=== PATIENT | male | born 1985 | race Caucasian/White ===

== ENCOUNTER 2017-02-19 06:10 | Emergency (ER) | payer MEDICAID ==
[~2017-02-19] VITALS: Ht 167.6 cm; Wt 75.0 kg
[~2017-02-19 06:10] MED LIST: MECL12.574 PO
[2017-02-19 06:14] VITALS: Ht 167.6 cm; Wt 75.0 kg
--- NOTE | 2017-02-19 06:34 | ERD ---
ER Documentation Chief Complaint Date/Time DATE: 02/19/17 TIME: 06:32 Chief Complaint left big toe injury HPI 32-year-old male comes in with left proximal big toe pain, he occurred in flexion injury while going down the stairs this morning 30 minutes ago. He describes localized pain that is achy, worse with weightbearing and worse with movement, better at rest. ROS All systems reviewed and are negative except as per history of present illness. Medications Home Meds Active Scripts Hydrocodone/Acetaminophen (Dundas 5-325 Tablet) 1 Each Tablet, 1 TAB PO Q6H Y for PAIN, #7 TAB Prov:KASANDRA LORENZANA PA-C 02/19/17 Ibuprofen* (Motrin*) 600 Mg Tab, 600 MG PO Q6, #30 TAB Prov:KASANDRA LORENZANA PA-C 02/19/17 Meclizine Hcl* (Antivert*) 12.5 Mg Tab, 25 MG PO Q6H Y for DIZZINESS, #20 TAB Prov:DENTON CASTRO NP 05/08/16 Reported Medications [none] Unknown Strength No Conflict Check 05/08/16 Allergies Allergies: Coded Allergies: No Known Allergy (Unverified , 02/19/17) PMhx/Soc Medical and Surgical Hx: pt denies Medical Hx, pt denies Surgical Hx History of Surgery: No Anesthesia Reaction: No Hx Neurological Disorder: No Hx Respiratory Disorders: No Hx Cardiac Disorders: No Hx Psychiatric Problems: No Hx Miscellaneous Medical Probl: No Hx Alcohol Use: Yes (socially) Hx Substance Use: No Hx Tobacco Use: No Smoking Status: Never smoker Physical Exam Vitals Vital Signs Date Time Temp Pulse Resp B/P Pulse Ox O2 Delivery O2 Flow Rate FiO2 02/19/17 06:14 97.8 78 20 119/75 98 Physical Exam General: Well-developed, well-nourished. The patient appears in no acute distress. HEENT: Head is normocephalic, atraumatic. No scleral icterus. Neck: Supple. Nontender. Lungs: Clear to auscultation. Normal air movement. Heart: Regular rate and rhythm. S1 and S2 are normal. No murmurs, gallops, or rubs. Abdomen: Nondistended. Extremities: Proximal left great toe pain with palpation. With swelling. He is able to flex and extend. Capillary refill less than 2 seconds neurologic: Alert and oriented 3. No focal deficits. Normal speech and gait. Skin: Normal turgor. No rash or lesions. Results 24 hrs Current Medications Medications (Trade) Dose Ordered Sig/Noemy Route PRN Reason Start Time Stop Time Status Last Admin Dose Admin Ibuprofen (Motrin) 600 mg ONCE ONCE PO 02/19/17 07:00 02/19/17 07:01 DC 02/19/17 06:53 Acetaminophen/ Hydrocodone Bitart (Dundas (5/325)) 1 tab ONCE ONCE PO 02/19/17 07:00 02/19/17 07:01 DC 02/19/17 06:53 DIAGNOSTIC IMAGING REPORT Patient: FILIPPO GONZALEZ : 1985 Age: 32 Sex: M MR #: [id number] DOS: 02/19/17630 Ordering MD: KASANDRA LORENZANA PA-C Location: [facility] Room/Bed: PROCEDURE: XR Toes. CLINICAL INDICATION: Pain, trauma TECHNIQUE: AP, oblique and lateral views of the left great toe were performed. COMPARISON: No prior studies are available for comparison. FINDINGS: There is normal mineralization and alignment. Nondisplaced, oblique intra- articular fracture of the first proximal phalanx is identified. The joint spaces are normal. There is soft tissue swelling. IMPRESSION: Nondisplaced, intra-articular fracture of the first proximal phalanx. Physician Kavon Date Time Electronically viewed and signed by Physician Kavon on 02/19/2017 08: 01 CS/ CC: KASANDRA LORENZANA PA-C Procedures/MDM ED course: He was given ibuprofen and Dundas for pain. Left great toe was placed in bozena tape splint, and he was placed in a postop shoe. Patient states he has crutches at home that he may use. Medical decision makin-year-old male comes in with traumatic left great toe proximal toe pain, Has an acute closed nondisplaced proximal phalanx fracture of the left great toe. No evidence of any infection, dislocation or neurovascular injury. He was asked to follow-up with his primary care doctor and get a referral to see an orthopedist by the end of the week Departure Diagnosis: Primary Impression: Toe fracture, left Condition: Good KASANDRA LORENZANA PA-C Feb 19, 2017 06:34
[2017-02-19] MEDS ORDERED: HYDROCODONE/APAP (5/325) TAB PO ONE (07:00)
[2017-02-19] MEDS ORDERED: IBUPROFEN 600 MG TAB PO ONE (07:00)
--- NOTE | 2017-02-19 08:01 | RADRPT ---
PROCEDURE: XR Toes. CLINICAL INDICATION: Pain, trauma TECHNIQUE: AP, oblique and lateral views of the left great toe were performed. COMPARISON: No prior studies are available for comparison. FINDINGS: There is normal mineralization and alignment. Nondisplaced, oblique intra-articular fracture of the first proximal phalanx is identified. The joint spaces are normal. There is soft tissue swelling. IMPRESSION: Nondisplaced, intra-articular fracture of the first proximal phalanx. Physician Kavon Date Time Electronically viewed and signed by Physician Kavon on 02/19/2017 08:01 /
[2017-02-19] MEDS ORDERED: IBUP-1542 PO (08:18)
[2017-02-19] MEDS ORDERED: HYDR-906 PO (08:18)
== END 2017-02-19 08:42 | disposition home or self-care (01) ==
LOC: FTE 06:10
DX: S92.415A Nondisplaced fracture of proximal phalanx of left great toe, initial encounter for closed fracture (principal); X50.9XXA Other and unspecified overexertion or strenuous movements or postures, initial encounter; Y92.9 Unspecified place or not applicable
CPT/HCPCS: 73660; Z7502; Z7610